=== PATIENT | female | born 1930 | race Caucasian/White ===

== ENCOUNTER → 2017-03-01 | Outpatient (CLI) | payer MEDICARE, OTHER ==
[~2017-03-01] MED LIST: BUDE10.2 INH; CHOL20003 PO; DICL75TA2 PO; LEVE100020 PO; LEVO50TA PO; LEVOTHYROXIN PO; MAGN300C PO; MAGN64TA9 PO; MONT10TA6 PO; OMEP-110 PO; OXYC-302 PO; OXYC5CAP4 PO; OXYC5TAB3 PO; TOPI50TA35 PO; UBID100C24 PO; VIT1TABL32 PO
== END | disposition home or self-care (01) ==
LOC: ROC 09:59
PROVIDERS: ATTEND Radiology Radiation Oncology
DX: D32.0 Benign neoplasm of cerebral meninges (principal)
CPT/HCPCS: G0463

== ENCOUNTER → 2017-05-05 | Outpatient (CLI) | payer MEDICARE, OTHER | END | disposition home or self-care (01) | LOC: ROC 12:56 | PROVIDERS: ATTEND Radiology Radiation Oncology | DX: D32.0 Benign neoplasm of cerebral meninges (principal) | CPT/HCPCS: G0463 ==

== ENCOUNTER 2017-05-25 09:39 | Emergency (ER) | payer MEDICARE, OTHER ==
[~2017-05-25] VITALS: Ht 157.5 cm; Wt 58.0 kg
[~2017-05-25 09:39] MED LIST changes: +CHOL2000 PO; -CHOL20003 PO
[2017-05-25] MEDS ORDERED: SODIUM CHLORIDE 0.9% 1,000 ML IV ONE (10:55)
[2017-05-25] MEDS ORDERED: SODIUM CHLORIDE FLUSH 10ML SYR IVF ONE (11:00)
[2017-05-25] MEDS ORDERED: MORPHINE SULFATE 4 MG/ML, 1ML ONE (11:29)
[2017-05-25 11:36] LABS: BLOOD UREA NITROGEN 10 mg/dL (7-18)
[2017-05-25 11:41] LABS: IS PT STATUS REG ER OR PRE ER? YES
[2017-05-25] MEDS ORDERED: MORPHINE SULFATE 4 MG/ML, 1ML IVPush PRN (12:00)
[2017-05-25] MEDS ORDERED: OMNIPAQUE 350 MG/ML, 100ML BOTTLE ONE (13:04)
[2017-05-25 13:21] VITALS: BP 133/73
== END 2017-05-25 13:24 | disposition home or self-care (01) ==
LOC: ED 10:29
DX: M16.12 Unilateral primary osteoarthritis, left hip (principal); Z90.49 Acquired absence of other specified parts of digestive tract; J45.909 Unspecified asthma, uncomplicated; E03.9 Hypothyroidism, unspecified; Z85.3 Personal history of malignant neoplasm of breast
CPT/HCPCS: 36415; 71010; 71275; 74175; 80048; 82040; 84484; 85025; 85610; 85730; 93005; 96361; 96374; 99285; J7030; Q9967

== ENCOUNTER → 2017-05-26 | Outpatient (CLI) | payer MEDICARE, OTHER | END | disposition home or self-care (01) | LOC: ROC 13:10 | PROVIDERS: ATTEND Radiology Radiation Oncology | DX: D32.0 Benign neoplasm of cerebral meninges (principal) | CPT/HCPCS: G0463 ==

== ENCOUNTER 2017-08-31 13:40 | Inpatient (IN) | payer MEDICARE, OTHER ==
[~2017-08-31] VITALS: Ht 157.5 cm; Wt 68.0 kg
[~2017-08-31 13:40] MED LIST changes: +OXYC5CAP2 PO; -OXYC5CAP4 PO
[2017-08-31] MEDS ORDERED: SODIUM CHLORIDE 0.9% 1,000 ML IV ONE (13:53)
[2017-08-31] MEDS ORDERED: SODIUM CHLORIDE FLUSH 10ML SYR IVF ONE (14:00)
[2017-08-31 14:14] LABS: HEMATOCRIT 39.4 % (34.6-47.8); HEMOGLOBIN 12.9 g/dL (11.7-16.4); WHITE BLOOD COUNT 19.1 x10^3/uL (3.4-10)
[2017-08-31 14:25] LABS: ASPARTATE AMINO TRANSFERASE 39 U/L (15-37); BLOOD UREA NITROGEN 25 mg/dL (7-18)
[2017-08-31 14:48] LABS: DIFF TOTAL CELLS COUNTED 200 CELL DIFF
[2017-08-31 14:49] LABS: VERIFY COUNTS? YES
[2017-08-31 14:50] LABS: ANISOCYTOSIS 1+
[2017-08-31] MEDS ORDERED: OMNIPAQUE 350 MG/ML, 100ML BOTTLE ONE (15:08)
[2017-08-31] MEDS ORDERED: FURO-93 PO (15:38)
[2017-08-31] MEDS ORDERED: LORA0.5T PO (15:38)
[2017-08-31] MEDS ORDERED: DEXA0.5E2 HOMEMISC (15:38)
[2017-08-31] MEDS ORDERED: GABA-827 PO (15:38)
[2017-08-31] MEDS ORDERED: DIAZ2TAB3 PO (15:38)
[2017-08-31] MEDS ORDERED: HYDR-3240 PO (15:38)
[2017-08-31] MEDS ORDERED: MORP10CA7 MT (15:38)
[2017-08-31] MEDS ORDERED: SODIUM CHLORIDE 0.9% 1,000ML IVBOLUS ONE (16:00)
[2017-08-31] MEDS ORDERED: MORPHINE SULFATE 4 MG/ML, 1ML IVPush ONE (16:00)
[2017-08-31] MEDS ORDERED: CEFTRIAXONE PMX 1GM/50ML 50 ML IV ONE (16:00)
[2017-08-31] MEDS ORDERED: CEFTRIAXONE PMX 1GM/50ML 50 ML ONE (16:01)
[2017-08-31] MEDS ORDERED: MORPHINE SULFATE 4 MG/ML, 1ML ONE ×2 (16:02→20:54)
[2017-08-31] MEDS ORDERED: LABETALOL 5MG/ML, 20ML IVPush PRN (16:30)
[2017-08-31] MEDS ORDERED: GUAIFENESIN/DM 200-20MG, 10ML UDC PO PRN (16:30)
[2017-08-31] MEDS ORDERED: ONDANSETRON 2MG/ML, 2ML IVPush PRN (16:30)
[2017-08-31] MEDS ORDERED: ONDANSETRON ODT 4 MG PO PRN (16:30)
[2017-08-31] MEDS ORDERED: POTA2VIA5 PO (17:31)
[2017-08-31] MEDS ORDERED: FENT1PAT77 TD (17:31)
[2017-08-31] MEDS ORDERED: POLY17PO5 PO (17:31)
[2017-08-31] MEDS ORDERED: DIAZ5TAB PO (17:31)
[2017-08-31] MEDS ORDERED: DECADRON PEG (17:31)
[2017-08-31] MEDS ORDERED: GABA300C10 PO (17:31)
[2017-08-31] MEDS ORDERED: MORPHINE SULFATE MT PRN (18:00)
[2017-08-31 18:49] VITALS: BP 103/75
[2017-08-31] MEDS: CEFTRIAXONE PMX 1GM/50ML 50 ML IV SCH (20:42)
[2017-08-31] MEDS: SODIUM CHLORIDE 0.9% 1,000 ML IV SCH (20:42)
[2017-08-31] MEDS: DEXAMETHASONE 4 MG/ML, 1ML IVPush SCH (20:43)
[2017-08-31] MEDS: ENOXAPARIN 40 MG/0.4 ML SQ SCH (20:43)
[2017-08-31] MEDS: morphine SULFATE 10 MG/ML, 1ML IVPush PRN (20:56)
[2017-08-31] MEDS: FLUTICASONE/VILANTEROL 200-25MCG/INH INH SCH (21:00)
[2017-08-31] MEDS: GABAPENTIN 300 MG CAPSULE PO SCH (21:00)
[2017-08-31] MEDS: LEVETIRACETAM 500 MG TABLET PO SCH (21:00)
[2017-08-31] MEDS: METRONIDAZOLE PMX 500MG/100ML 100 ML IV SCH (22:11)
[2017-08-31 22:51] LABS: HEMATOCRIT 37.4 % (34.6-47.8); HEMOGLOBIN 12.3 g/dL (11.7-16.4); WHITE BLOOD COUNT 16.4 x10^3/uL (3.4-10)
[2017-08-31 23:19] LABS: DIFF TOTAL CELLS COUNTED 100 CELL DIFF
[2017-08-31 23:20] LABS: VERIFY COUNTS? YES
[2017-08-31 23:21] LABS: ANISOCYTOSIS 1+; POLYCHROMASIA 1+
[2017-09-01 00:42] VITALS: BP 146/94
[2017-09-01] MEDS ORDERED: MORPHINE SULFATE 4 MG/ML, 1ML ONE ×3 (01:51→20:51)
[2017-09-01] MEDS: morphine SULFATE 10 MG/ML, 1ML IVPush PRN ×5 (01:56→20:55)
[2017-09-01 05:08] LABS: HEMOGLOBIN 11.5 g/dL (11.7-16.4)
[2017-09-01 05:25] LABS: ASPARTATE AMINO TRANSFERASE 35 U/L (15-37); BLOOD UREA NITROGEN 24 mg/dL (7-18)
[2017-09-01 05:40] LABS: DIFF TOTAL CELLS COUNTED 100 CELL DIFF
[2017-09-01] MEDS ORDERED: ALBUTEROL SULFATE 2.5 MG/3 ML ONE (05:41)
[2017-09-01 05:43] LABS: ANISOCYTOSIS 1+; POLYCHROMASIA 1+; VERIFY COUNTS? YES
[2017-09-01] MEDS: SODIUM CHLORIDE 0.9% 1,000 ML IV SCH ×4 (05:58→22:58)
[2017-09-01] MEDS ORDERED: ALBUTEROL/IPRATROPIUM 2.5MG/0.5MG, 3 ML NPPB PRN (06:00)
[2017-09-01] MEDS: DEXAMETHASONE 4 MG/ML, 1ML IVPush SCH ×2 (06:06→18:00)
[2017-09-01] MEDS: METRONIDAZOLE PMX 500MG/100ML 100 ML IV SCH ×3 (06:06→22:54)
[2017-09-01 07:40] VITALS: BP 130/70
[2017-09-01] MEDS ORDERED: LEVOTHYROXIN PO SCH (09:00)
[2017-09-01] MEDS: FLUTICASONE/VILANTEROL 200-25MCG/INH INH SCH (09:18)
[2017-09-01] MEDS: GABAPENTIN 300 MG CAPSULE PO SCH ×3 (09:18→20:56)
[2017-09-01] MEDS: LEVETIRACETAM 500 MG TABLET PO SCH ×2 (09:19→20:56)
[2017-09-01] MEDS: HYDROcodone/APAP 5/325 TABLET PO PRN (09:29)
[2017-09-01 13:24] VITALS: BP 125/68
[2017-09-01] MEDS ORDERED: METR500T PO (16:28)
[2017-09-01] MEDS ORDERED: CIPR500T87 PO (16:28)
[2017-09-01] MEDS: ENOXAPARIN 40 MG/0.4 ML SQ SCH (18:00)
[2017-09-01] MEDS: CEFTRIAXONE PMX 1GM/50ML 50 ML IV SCH (20:55)
[2017-09-01] MEDS ORDERED: FENTANYL REMOVE PATCH NOTE XX SCH (21:00)
[2017-09-01] MEDS ORDERED: FENTANYL 25 MCG PATCH TD SCH (21:00)
[2017-09-01 21:30] VITALS: BP 130/80
[2017-09-01] MEDS: LACTULOSE 20 GM/30 ML UDC PO SCH (22:54)
[2017-09-02] MEDS ORDERED: MORPHINE SULFATE 4 MG/ML, 1ML ONE (04:00)
[2017-09-02] MEDS: morphine SULFATE 10 MG/ML, 1ML IVPush PRN ×3 (04:06→09:49)
[2017-09-02 04:35] VITALS: BP 166/88
[2017-09-02 04:48] LABS: HEMATOCRIT 31.5 % (34.6-47.8); HEMOGLOBIN 10.3 g/dL (11.7-16.4); WHITE BLOOD COUNT 10.9 x10^3/uL (3.4-10)
[2017-09-02 04:57] LABS: BLOOD UREA NITROGEN 19 mg/dL (7-18)
[2017-09-02] MEDS: METRONIDAZOLE PMX 500MG/100ML 100 ML IV SCH (05:23)
[2017-09-02] MEDS: DEXAMETHASONE 4 MG/ML, 1ML IVPush SCH (05:23)
[2017-09-02] MEDS ORDERED: LORazepam 1MG TABLET ONE (07:52)
[2017-09-02] MEDS: LEVETIRACETAM 500 MG TABLET PO SCH (07:58)
[2017-09-02] MEDS: HYDROcodone/APAP 5/325 TABLET PO PRN (07:58)
[2017-09-02] MEDS: GABAPENTIN 300 MG CAPSULE PO SCH (07:58)
[2017-09-02] MEDS ORDERED: LORazepam 0.5MG TABLET PO PRN (08:00)
[2017-09-02] MEDS: LACTULOSE 20 GM/30 ML UDC PO SCH (08:03)
[2017-09-02] MEDS: FLUTICASONE/VILANTEROL 200-25MCG/INH INH SCH (08:03)
[2017-09-02] MEDS: SODIUM CHLORIDE 0.9% 1,000 ML IV SCH (11:51)
== END 2017-09-02 12:30 | disposition home or self-care (01) | DRG 871 ==
LOC: ED 15:35 → EDIP 15:36 → ED 16:08 → 3NW 18:28
PROVIDERS: ADMIT Internal Medicine; ATTEND Internal Medicine
DX: A41.9 Sepsis, unspecified organism (principal); J96.01 Acute respiratory failure with hypoxia; E43 Unspecified severe protein-calorie malnutrition; G93.41 Metabolic encephalopathy; E86.0 Dehydration; E87.1 Hypo-osmolality and hyponatremia; R65.20 Severe sepsis without septic shock; E03.9 Hypothyroidism, unspecified; E78.5 Hyperlipidemia, unspecified; J45.20 Mild intermittent asthma, uncomplicated; M79.7 Fibromyalgia; Z66 Do not resuscitate; Z85.3 Personal history of malignant neoplasm of breast; Z86.011 Personal history of benign neoplasm of the brain; Z90.10 Acquired absence of unspecified breast and nipple; Z68.27 Body mass index [BMI] 27.0-27.9, adult
CPT/HCPCS: 36415; 71010; 74177; 80048; 80053; 81001; 82040; 83605; 83690; 83735; 84145; 85025; 87040; 87086; 96374; J0696; J1100; J1650; Q9967; J2270; J7030